=== PATIENT | female | born 1975 | race African-American/Black ===

== ENCOUNTER 2019-06-18 15:06 | Emergency (ER) | payer OTHER ==
[~2019-06-18] VITALS: Ht 154.9 cm; Wt 81.7 kg
[2019-06-18] MEDS ORDERED: KEFLEX500 M1 PO (16:57)
[2019-06-18] MEDS ORDERED: NORCO 5-325 TA1 EAC1 PO (16:57)
[2019-06-18] MEDS ORDERED: IBUPROFEN 600600 M1 PO (16:57)
[2019-06-18 17:20] VITALS: BP 124/82
== END 2019-06-18 17:23 | disposition home or self-care (01) ==
LOC: ER 15:06
DX: N61.1 Abscess of the breast and nipple (principal); E03.9 Hypothyroidism, unspecified; J45.909 Unspecified asthma, uncomplicated